=== PATIENT | male | born 2005 | race African-American/Black ===

== ENCOUNTER 2024-05-26 03:40 | Emergency (ER) | payer BC, OTHER ==
[2024-05-26] MEDS ORDERED: EPINEPHrine 1 MG/10 ML Abboject SYRINGE ONE (03:44)
[2024-05-26] MEDS ORDERED: Sodium Bicarb 50 MEQ/50 ML Abboject 8.4% SYRINGE ONE (03:44)
== END 2024-05-26 03:50 | disposition expired ==
LOC: ERS 03:40 → EDBD 03:40 → ERS 03:50
DX: I46.9 Cardiac arrest, cause unspecified (principal); V64.6XXA Passenger in heavy transport vehicle injured in collision with heavy transport vehicle or bus in traffic accident, initial encounter
CPT/HCPCS: 36430; 86850; 86900; 86901; 92950; 96374; G0390; J0171; P9016; P9048